=== PATIENT | female | born 1990 ===

== ENCOUNTER 2017-11-12 13:10 | Emergency (ER) | payer OTHER ==
[~2017-11-12] VITALS: Ht 154.9 cm; Wt 81.6 kg
[~2017-11-12 13:10] MED LIST: ADVIL LIQUI-GE200 MG; DULCOLAX STOOL100 MG PO; ORPH100T PO
== END 2017-11-12 16:00 | disposition home or self-care (01) ==
LOC: ER 13:10
DX: B02.8 Zoster with other complications (principal)

== ENCOUNTER 2018-07-07 16:58 | Emergency (ER) | payer OTHER ==
[~2018-07-07] VITALS: Ht 157.5 cm; Wt 81.6 kg
== END 2018-07-07 20:32 | disposition home or self-care (01) ==
LOC: ER 16:58
DX: R07.89 Other chest pain (principal)

== ENCOUNTER 2020-06-10 23:43 | Emergency (ER) | payer OTHER ==
[~2020-06-10] VITALS: Ht 154.9 cm; Wt 78.0 kg
[2020-06-11] MEDS ORDERED: ACETAMINOPHEN650 M2 PO (03:51)
[2020-06-11] MEDS ORDERED: VITAMIN C1000 MG PO (03:51)
[2020-06-11] MEDS ORDERED: PERCOCET 5-3251 EACH PO (03:51)
== END 2020-06-11 04:18 | disposition home or self-care (01) ==
LOC: ER 23:43
DX: M25.442 Effusion, left hand (principal); M25.441 Effusion, right hand; B34.9 Viral infection, unspecified; Z03.818 Encounter for observation for suspected exposure to other biological agents ruled out

== ENCOUNTER 2022-09-14 11:00 | Outpatient (CLI) | payer OTHER ==
[~2022-09-14 11:00] MED LIST changes: +ACETAMINOPHEN650 M2 PO; +PERCOCET 5-3251 EACH PO; +VITAMIN C1000 MG PO
== END 2022-09-14 11:14 | disposition home or self-care (01) ==
LOC: SONOGRAMA 11:00
PROVIDERS: ATTEND Obstetrics & Gynecology
DX: N60.11 Diffuse cystic mastopathy of right breast (principal); N60.12 Diffuse cystic mastopathy of left breast

== ENCOUNTER 2024-02-25 14:18 | Outpatient (CLI) | payer OTHER | END 2024-02-25 14:33 | disposition home or self-care (01) | LOC: SONOGRAMA 14:18 | PROVIDERS: ATTEND Obstetrics & Gynecology | DX: N63.0 Unspecified lump in unspecified breast (principal); N64.4 Mastodynia ==